=== PATIENT | female | born 1980 | race Caucasian/White ===

== ENCOUNTER 2018-07-13 14:28 | Inpatient (IN) | payer MEDICARE ==
[~2018-07-13] VITALS: Ht 170.2 cm; Wt 77.8 kg
[2018-07-13] MEDS ORDERED: OXYCODONE HCL5 MG PO (15:17)
[2018-07-13] MEDS ORDERED: LAMICTAL100 MG PO (15:20)
[2018-07-13] MEDS ORDERED: TRAZODONE HCL50 MG PO (15:20)
[2018-07-13] MEDS ORDERED: TOPROL XL25 MG PO (15:21)
[2018-07-13] MEDS ORDERED: NEXIUM40 MG PO (15:21)
[2018-07-13] MEDS ORDERED: ZOFRAN4 MG PO (15:22)
[2018-07-13 15:44] VITALS: BP 140/79; BMI 27.0
[2018-07-13 16:48] VITALS: BP 140/79
[2018-07-13 20:42] VITALS: BP 159/97
[2018-07-13 21:16] VITALS: Ht 170.2 cm; Wt 77.8 kg
[2018-07-14 00:02] VITALS: BP 145/85
[2018-07-14 05:32] LABS: BASOPHILS 0.3 % (0-2); EOSINOPHILS 2.7 % (0-7); HEMATOCRIT 39.7 % (36.0-48.0); HEMOGLOBIN 12.2 g/dL (12-16); IMMATURE GRANULOCYTES 0.2 % (0-5); LYMPHOCYTES 21.1 % (15-50); MCH 27.9 pg (26.0-34.0); MCHC 30.7 g/dL (31.0-37.0); MCV 90.6 fL (80.0-100.0); MEAN PLATELET VOLUME 10.4 fL (7.4-10.4); MONOCYTES 8.9 % (2-11); NEUTROPHILS 66.8 % (40-80); PLATELET COUNT 152 10x3/uL (130-400); RBC 4.38 10x6/uL (4.00-5.40); RDW 20.4 % (11.5-14.5); WBC 9.2 10x3/uL (4.8-10.8)
[2018-07-14 05:37] VITALS: BP 139/68
[2018-07-14 06:11] LABS: ANION GAP 15.9 mmol/L (8-16); CALCIUM 9.7 mg/dL (8.5-10.1); CARBON DIOXIDE 26.1 mmol/L (21.0-32.0); CREATININE - SERUM 7.3 mg/dL (0.6-1.3)
[2018-07-14 08:29] VITALS: BP 140/82
[2018-07-14 12:24] VITALS: BP 90/60
== END 2018-07-14 12:28 | disposition left against medical advice (07) | DRG 871 ==
LOC: D.M2 14:28
PROVIDERS: Internal Medicine
DX: R78.81 Bacteremia (principal); N18.6 End stage renal disease; I12.0 Hypertensive chronic kidney disease with stage 5 chronic kidney disease or end stage renal disease; Z99.2 Dependence on renal dialysis; D63.1 Anemia in chronic kidney disease; K21.9 Gastro-esophageal reflux disease without esophagitis; J32.9 Chronic sinusitis, unspecified